=== PATIENT | male | born 1965 | race Caucasian/White ===

== ENCOUNTER 2018-10-27 06:03 | Day surgery (SDC) | payer BC ==
[2018-10-27] MEDS ORDERED: DIPRIVAN 200 MG/20 ML IV ONE (06:04)
[2018-10-27] MEDS ORDERED: Ketamine HCl 50 MG/ML IJ ONE (06:04)
[2018-10-27] MEDS ORDERED: Lactated Ringers 1,000 ML IV SCH (06:30)
[2018-10-27 07:40] LABS: Hematocrit 45.4 % (42-50); Hemoglobin 15.2 gm/dl (12.5-18.0); Mean Cell Volume 92.5 fl (78-100); Mean Corpuscular Hgb Concent. 33.5 g/dl (32-36); Mean Platelet Volume 10.2 fl (6-9.5); Platelet Count 260 K/mm3 (150-450); Red Blood Count 4.91 M/mm3 (4.1-5.6); Red Cell Distribution Width 12.5 % (11.5-14.0); White Blood Count 6.7 K/mm3 (4.0-10.5)
[2018-10-27 08:20] LABS: ALBUMIN 4.5 g/dL (3.5-5.0); ALKALINE PHOSPHATASE 45 U/L (38-126); ANION GAP 17.2 MEQ/L (5-15); BLOOD UREA NITROGEN 14 mg/dL (9-20); CHLORIDE 102 mmol/L (98-107); Calcium 9.6 mg/dL (8.4-10.2); Carbon Dioxide 26 mmol/L (22-30); Cholesterol 190 mg/dL (50-200); Glucose 93 mg/dL (74-106); HDL CHOLESTEROL 33 mg/dL (40-60); LDL, DIRECT 131 mg/dL (30-100); Risk Ratio 5.8; SGOT/AST 34 U/L (17-59); SGPT/ALT 53 U/L (0-50); SODIUM 141 mmol/L (137-145); TRIGLYCERIDE 187 mg/dL (30-150); Total Protein 7.9 g/dL (6.3-8.2)
--- NOTE | 2018-10-27 09:20 | OP ---
SURGERY DATE/TIME: 10/27/2018821 PREOPERATIVE DIAGNOSIS: Screening colonoscopy. POSTOPERATIVE DIAGNOSIS: Colon polyps x7. PROCEDURE: Colonoscopy. SURGEON: Jose Escoto M.D. ANESTHESIA: MAC by Se Daley CRNA. ESTIMATED BLOOD LOSS: Minimal. SPECIMENS: There were seven hot forceps polypectomies sent for pathology testing from the sigmoid and proximal rectum. DESCRIPTION OF PROCEDURE: After informed written consent was obtained, the patient was taken to the endoscopy suite. He underwent monitored anesthesia and digital rectal exam showed normal sphincter tone and no internal lesions. The scope was inserted into the rectum and sequentially the entire colonic mucosa was traversed. The level of cecum was reached and verified with direct visualization of ileocecal valve. Upon withdrawal careful mucosal inspection revealed no abnormalities until the level of distal sigmoid colon was reached. Multiple sessile polyps removed in their entirety with hot forceps in the rectosigmoid region and sent for pathology testing. Prior to withdrawal retroflexion performed and showed no internal lesions. The scope was removed and the patient was transferred to the recovery room in good condition.
[2018-10-27 09:47] VITALS: O2SAT 100
[2018-10-27 10:01] VITALS: BP 126/82; PULSE 59
[2018-10-27] MEDS ORDERED: Lactated Ringers 1,000 ML IV ONE (10:43)
== END 2018-10-27 10:00 | disposition home or self-care (01) ==
LOC: SDC 06:03
PROVIDERS: ATTEND Family Medicine
DX: Z12.11 Encounter for screening for malignant neoplasm of colon (principal); K63.5 Polyp of colon; K62.1 Rectal polyp; Z79.899 Other long term (current) drug therapy
CPT/HCPCS: 36415; 80053; 80061; 83721; 84443; 85027; 88305; J2704

== ENCOUNTER 2023-05-20 06:22 | Day surgery (SDC) | payer BC, OTHER ==
[2023-05-20] MEDS ORDERED: Lactated Ringers 1,000 ML IV ONE (06:30)
[2023-05-20 06:55] VITALS: RESP 18
[2023-05-20] MEDS ORDERED: Lactated Ringers 1,000 ML IV SCH (07:00)
[2023-05-20] MEDS ORDERED: DIPRIVAN 200 MG/20 ML IV ONE ×2 (08:06→08:27)
[2023-05-20] MEDS ORDERED: Xylocaine-Mpf 2% 5 Ml Vial ONE (08:06)
[2023-05-20 09:06] VITALS: TEMP 97.4; O2SAT 100
[2023-05-20 09:23] VITALS: BP 133/93; PULSE 69
--- NOTE | 2023-05-20 09:32 | OP ---
SURGERY DATE/TIME: 05/20/2023812 PREOPERATIVE DIAGNOSIS: History of colon polyps. POSTOPERATIVE DIAGNOSIS: Colon polyps x4. PROCEDURE: Colonoscopy. SURGEON: Jose Escoto M.D. ANESTHESIA: MAC by Dale Ugalde CRNA. ESTIMATED BLOOD LOSS: Minimal. SPECIMENS: Four hot forceps polypectomies, two from the sigmoid and two from the rectum. DESCRIPTION OF PROCEDURE: After informed written consent was obtained, the patient was taken to the endoscopy suite. He was placed in left lateral decubitus position and anesthesia was titrated to desired level of consciousness. Digital rectal exam showed normal sphincter tone and no internal lesions. The scope was inserted into the rectum and sequentially the entire colonic mucosa was traversed. The level of cecum was reached and verified with direct visualization of the ileocecal valve. Upon withdrawal there were two small sessile polyps first in the proximal sigmoid colon grasped with forceps, cauterized and removed in its entirety. The two from the sigmoid were in close proximity and were sent together for pathology testing. Upon further withdrawal, there were two sessile polyps in the rectal area proximal rectum that were likewise grasped with forceps, cauterized and removed in entirety. Those were collected for pathology and sent together as well. Retroflexion showed no internal lesions. The scope was removed. The patient was transferred to the recovery room in excellent condition.
== END 2023-05-20 09:29 | disposition home or self-care (01) ==
LOC: SDC 06:22
PROVIDERS: ATTEND Family Medicine
DX: Z09 Encounter for follow-up examination after completed treatment for conditions other than malignant neoplasm (principal); Z86.010 Personal history of colon polyps; K63.5 Polyp of colon
CPT/HCPCS: J2704